=== PATIENT | male | born 1965 | race Caucasian/White ===

== ENCOUNTER 2016-09-21 21:55 | Emergency (ER) | payer OTHER ==
--- NOTE | ~2016-09-21 | CR229 ---
[facility] A Service of [facility] RADIOLOGY TEXT RESULTS PATIENT: JAREK PAGE LOCATION: CFTX : 67 UNIT #: [id number] AGE: [address]: Lg Smallwood SEX: M ORDER DR: [id number] [facility] [address] [place], [place] [address] [id number] E MR#: [id number] Acc #: [id number] NAME: JAREK PAGE : 1965 SEX: M STUDY DATE/TIME: 09/21/2016 22:48 UNIT: CFDE ROOM: STUDY DESCRIPTION: CR Shoulder Min 2 View Lt Attending Physician: Lg Smallwood P.A.-C. Ordering Physician: Lg Smallwood P.A.-C. Primary Care Physician: Primary Care Physician No MEDICAL IMAGING REPORT This report is preliminary unless electronic signature is present EXAM Left shoulder, 09/21 at 22:48 INDICATION Shoulder pain after fall down stairs yesterday. FINDINGS Three views of the left shoulder were obtained. 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 No fracture or dislocation is seen. There is no AC joint separation. IMPRESSION AC joint arthropathy, otherwise negative left shoulder. Dictated by... Benton Mckenzie Jr., M.D. THIS IS AN ELECTRONICALLY VERIFIED REPORT Benton Mckenzie Jr., M.D. at 09/22/2016 9:21 PM OLIMPIA/jerry TD: 09/22/2016 12:48 JOB #: [id number] MEDICAL IMAGING REPORT Page 1 of 1 COPY
--- NOTE | ~2016-09-21 | CR169 ---
[facility] A Service of [facility] RADIOLOGY TEXT RESULTS PATIENT: JAREK PAGE LOCATION: CFTX : 67 UNIT #: [id number] AGE: [address]: Lg Smallwood SEX: M ORDER DR: [id number] [facility] [address] [place], [place] [address] [id number] E MR#: [id number] Acc #: [id number] NAME: JAREK PAGE : 1965 SEX: M STUDY DATE/TIME: 09/21/2016 22:46 UNIT: CFMD ROOM: STUDY DESCRIPTION: CR Knee 2 Views Lt Attending Physician: Lg Smallwood P.A.-C. Ordering Physician: Lg Smallwood P.A.-C. Primary Care Physician: Primary Care Physician No MEDICAL IMAGING REPORT This report is preliminary unless electronic signature is present EXAM Left knee, 09/21 at 22:46 INDICATION Knee pain after fall down stairs yesterday. Abrasions. FINDINGS Two views of the left knee were obtained. No fracture or malalignment is seen. There is no joint effusion. There are no radiopaque foreign bodies. IMPRESSION Negative left knee. Dictated by... Benton Mckenzie Jr., M.D. THIS IS AN ELECTRONICALLY VERIFIED REPORT Benton Mckenzie Jr., M.D. at 09/22/2016 9:21 PM OLIMPIA/jerry TD: 09/22/2016 12:50 JOB #: [id number] MEDICAL IMAGING REPORT Page 1 of 1 COPY
[~2016-09-21 21:55] MED LIST: ACULAR10 ML; ATARAX PO; BACTRIM DS TABL1 TA1 PO; CLEOCIN; ELIMITE60 GM TOP; ERYTHROMYCIN O3.5 GM; FLEXERIL10 MG PO; HYDROCODON-ACE1 EAC9 PO; HYDROCODON-ACE1 EACH PO; NO MEDICATIONS; ORUDIS75 M1 PO; PREDNISONE5 M1 PO; TYLENOL #3 PO
== END 2016-09-21 23:30 | disposition home or self-care (01) ==
LOC: CFTX 21:55 → CED 21:55 → CFTX 22:45
DX: S80.02XA Contusion of left knee, initial encounter (principal); M25.512 Pain in left shoulder; F17.210 Nicotine dependence, cigarettes, uncomplicated; W01.0XXA Fall on same level from slipping, tripping and stumbling without subsequent striking against object, initial encounter; Y92.009 Unspecified place in unspecified non-institutional (private) residence as the place of occurrence of the external cause
CPT/HCPCS: 73030; 73560; 99283